=== PATIENT | male | born 1975 | race Caucasian/White ===

== ENCOUNTER 2017-07-28 14:45 | Emergency (ER) | payer BC ==
[2017-07-28 16:09] VITALS: BP 135/93
--- NOTE | 2017-07-28 16:23 | UC ---
FLU HPI - HPI Summary HPI Summary: 41 y/o male presents to the urgent care c/o productive cough, chills, fever, ROQUE , for the past 3 days. Pt reports now he feels fatigue and mild SOB at times. Pt has taking Mucinex and ibuprofen Po to alleviate symptoms. Pain is 4/10 w/ decrease appetite. he has been taking fluids. Pt denies chest pain, abdominal pain, N/V/D. - History of Current Complaint Chief Complaint: UCRespiratory Stated Complaint: FLU-LIKE SYMPTOMS Time Seen by Provider: 07/28/17 16:05 Hx Obtained From: Patient Onset/Duration: Gradual Onset, Lasting Days - 3 days, Still Present Severity Currently: Mild Severity Initially: Moderate Pain Intensity: 4 Pain Scale Used: 0-10 Numeric Associated Signs & Symptoms: Positive: Fever, Myalgia, Cough, Sore Throat, Nasal Congestion, Headache - Risk Factors Influenza Risk Factors: Negative - Allergy/Home Medications Allergies/Adverse Reactions: Allergies Allergy/AdvReac Type Severity Reaction Status Date / Time Seasonal Allergies Allergy Intermediate Congestion Uncoded 11/10/15 06:19 PMH/Surg Hx/FS Hx/Imm Hx Previously Healthy: Yes - Pt denies PMHX - Surgical History Surgical History: Yes Surgery Procedure, Year, and Place: Hernia repair as a child. 1994 IMPACTED WISDOM TEETH EXCISION, [place] - Family History Known Family History: Positive: Cardiac Disease, Hypertension - Social History Occupation: Employed Full-time Lives: With Family Alcohol Use: Daily Alcohol Amount: BEER Substance Use Type: None Smoking Status (MU): Never Smoked Tobacco Review of Systems Constitutional: Fever, Chills, Fatigue, Other - body aches Skin: Negative Eyes: Negative ENT: Sore Throat, Nasal Discharge Respiratory: Cough Cardiovascular: Negative Gastrointestinal: Negative Genitourinary: Negative Motor: Negative Neurovascular: Negative Musculoskeletal: Negative Neurological: Headache Psychological: Negative Is Patient Immunocompromised?: No All Other Systems Reviewed And Are Negative: Yes Physical Exam - Summary Physical Exam Summary: VITAL SIGNS: Reviewed. GENERAL: Patient is a well developed and nourished male who is sitting comfortable in the examining table. Patient is not in any acute respiratory distress. HEAD AND FACE: No signs of trauma. No ecchymosis, hematomas or skull depressions. No sinus tenderness. edematous erythematous nasal mucosa with yellowish discharge, EYES: PERRLA, EOMI x 2, No injected conjunctiva, clear watery eyes, no nystagmus. No photophobia. EARS: Hearing grossly intact. Ear canals and tympanic membranes are within normal limits. MOUTH: Positive pharynx with erythema, no exudates,no palatal petechiae. no B/L tonsillar enlargement Uvula in midline. NECK: Supple, trachea is midline, Positive anterior cervical lymphadenopathy, no JVD, no carotid bruit, no c-spine tenderness, neck with full ROM. No meningeal signs, no Kernig's or brudzinskis signs. CHEST: Symmetric, no tenderness at palpation LUNGS: Clear to auscultation bilaterally. No wheezing or crackles. CVS: Regular rate and rhythm, S1 and S2 present, no murmurs or gallops appreciated. ABDOMEN: Soft, non-tender. No signs of distention. No rebound no guarding, and no masses palpated. Bowel sounds are normal. EXTREMITIES: FROM in all major joints, no edema, no cyanosis or clubbing. NEURO: Alert and oriented x 3. No acute neurological deficits. Speech is normal and follows commands. SKIN: Dry and warm Triage Information Reviewed: Yes Vital Signs: Initial Vital Signs Temp 98.5 F 07/28/17 16:02 Pulse 83 07/28/17 16:02 Resp 18 07/28/17 16:02 BP 135/93 07/28/17 16:02 Pulse Ox 100 07/28/17 16:02 Flu Course/Dx - Course Course Of Treatment: 41 y/o male presents to the urgent care c/o productive cough, chills, fever, ROQUE, for the past 3 days. Pt reports now he feels fatigue and mild SOB at times. Pt has taking Mucinex and ibuprofen Po to alleviate symptoms. Pain is 4/10 w/ decrease appetite. he has been taking fluids. Pt denies chest pain, abdominal pain, N/V/D.Hx obtained. Pt w/ URI on examination. Influenza A&B ordered: result: Influenza B positive.Pt Rx Tamiflu and tylenol PO to alleviates symptoms. Pt also Rx Omeprazole PO since Pt probably developping GERD. Advised on hand washing and wear a mask to avoid spreading. Pt advised to rest, increase fluid intake, eat well and avoid strenuous exercise. If symptoms do not improve or worsen advised to return to the urgent care or f/u with her PCP for further evaluation and treatment.Pt's BP is elevated today advised to decrease salt in diet, monitor BP and f/u with PCP for further management. Pt understood and agreed with plan of care. - Differential Dx/Diagnosis Provider Diagnoses: 1- Influenza B. 2-GERD. 3- Elevated BP w/o Hx of HTN Discharge - Sign-Out/Discharge Documenting (check all that apply): Discharge - Discharge Plan Condition: Stable Disposition: HOME Prescriptions: Acetaminophen TAB* [Tylenol TAB*] 650 mg PO Q4H PRN #30 tab PRN Reason: Fever Omeprazole CAP* [Prilosec CAP* 20 MG] 20 mg PO BEDTIME #30 cap. Oseltamivir CAP* [Tamiflu CAP*] 75 mg PO BID #10 cap Patient Education Materials: Influenza (ED), Gastroesophageal Reflux Disease ( ED), Low-Sodium Diet (ED) Forms: *Work Release Referrals: Abril Ng MD [Primary Care Provider] - 3 Days Additional Instructions: 1- Please take the full course of the antiviral to avoid resistance. Encourage hand washing and wear a mask to avoid spreading. 2-Please continue taking Tylenol PO q6-8hrs prn as instructed after meals to alleviate fever, Increase fluid intake, eat well, rest and avoid strenuous exercise 3- Continue taking Mucinex for your cough. Take Omperazole PO as directed to alleviate GERD. Avoid spicy food, citrus fruits, tomato sauce, chocolates etc or staying long period of time w/o eating. Avoid drinking alcohol or smoking. 4-If symptoms do not improve or worsen please return to the urgent care or f/u with your PCP in 2 days for further evaluation and treatment. 5-Your BP is elevated today. please decrease salt in your diet, monitor BP and if it continues to be elevated please f/u with your PCP for further management - Billing Disposition and Condition Condition: STABLE Disposition: HOME
== END 2017-07-28 16:55 | disposition home or self-care (01) ==
LOC: UCEAST 14:45
DX: J10.1 Influenza due to other identified influenza virus with other respiratory manifestations (principal); K21.9 Gastro-esophageal reflux disease without esophagitis; R03.0 Elevated blood-pressure reading, without diagnosis of hypertension
CPT/HCPCS: 87502; 99212; G0463